=== PATIENT | male | born 1985 | race Caucasian/White ===

== ENCOUNTER 2020-06-18 05:17 | Inpatient (IN) | payer OTHER ==
[~2020-06-18] VITALS: Ht 162.6 cm; Wt 62.5 kg
[~2020-06-18 05:17] MED LIST: ACET-66 PO; CeFAZolin 2 GM/DEXTROSE 50 ML IV ONE; LIDOCAINE/PF 1% 5 ML VIAL INJ ONE; RINGERS SOLUTION,LACTATED 1,000 ML IV ONE
[2020-06-18] MEDS ORDERED: MICROFIBRILLAR COLLAGEN 1 GM PACKAGE TP ONE (05:51)
[2020-06-18] MEDS ORDERED: GELATIN SPONGE,ABSORBABLE 50 MM TP ONE (05:51)
[2020-06-18] MEDS ORDERED: VANCOMYCIN HCL 1 GM/VIAL ONE (05:51)
[2020-06-18] MEDS ORDERED: THROMBIN, BOVINE 20000 UNITS/VIAL POWDER TP ONE (05:52)
[2020-06-18] MEDS ORDERED: MUPIROCIN CALCIUM 2% 22 GM OINTMENT ONE (06:15)
[2020-06-18] MEDS ORDERED: BUPIVACAINE HCL/PF 0.5% 30 ML VIAL ONE (06:30)
[2020-06-18] MEDS ORDERED: BUPIVACAINE LIPOSOME/PF 1.3%-13.3MG/ML SUSPENSION 20 ML VIAL INJ ONE (06:30)
[2020-06-18] MEDS ORDERED: SODIUM CHLORIDE 0.9% 1,000 ML ONE (06:31)
[2020-06-18] MEDS ORDERED: CeFAZolin 2 GM/DEXTROSE 50 ML IV ONE (07:00)
[2020-06-18] MEDS ORDERED: RINGERS SOLUTION,LACTATED 1,000 ML IV SCH (07:00)
[2020-06-18] MEDS ORDERED: MEPERIDINE-PF 25 MG/ML VIAL IVP PRN (08:30)
[2020-06-18] MEDS ORDERED: ONDANSETRON HCL 4 MG/2 ML VIAL IVP PRN (08:30)
[2020-06-18] MEDS ORDERED: HYDROmorphone 2 MG/ML SYRINGE IVP PRN ×2 (08:30)
[2020-06-18] MEDS ORDERED: SUGAMMADEX SODIUM 200 MG/2 ML VIAL IVP ONE (08:48)
[2020-06-18 10:17] VITALS: BP 119/71
[2020-06-18] MEDS: ACETAMINOPHEN 1000 MG/ISO-OSM 100 ML IV SCH ×2 (11:35→16:55)
[2020-06-18] MEDS: HYDROmorphone 2 MG/ML SYRINGE IVP PRN ×2 (13:27→20:28)
[2020-06-18] MEDS: CeFAZolin 2 GM/DEXTROSE 50 ML IV SCH ×2 (15:16→22:32)
[2020-06-18 15:32] VITALS: BP 117/73
[2020-06-18 20:15] VITALS: BP 96/61
[2020-06-18] MEDS ORDERED: SODIUM CHLORIDE 0.9% 500 ML IV ONE (22:45)
[2020-06-18 23:38] VITALS: BP 97/58
[2020-06-19] MEDS: ACETAMINOPHEN 1000 MG/ISO-OSM 100 ML IV SCH (00:56)
[2020-06-19] MEDS: HYDROmorphone 2 MG/ML SYRINGE IVP PRN ×2 (02:18→09:58)
[2020-06-19 03:50] VITALS: BP 97/57
[2020-06-19] MEDS ORDERED: PROPOFOL 1% 20 ML VIAL IVP ONE (05:58)
[2020-06-19] MEDS ORDERED: ROCURONIUM BROMIDE 10 MG/ML 5 ML VIAL IVP ONE (05:58)
[2020-06-19] MEDS ORDERED: LIDOCAINE/PF 2% 5 ML VIAL IM ONE (05:58)
[2020-06-19 07:56] VITALS: BP 99/58
[2020-06-19] MEDS ORDERED: ENOXAPARIN SODIUM 40 MG/0.4 ML PF SYRINGE SQ SCH (10:00)
[2020-06-19] MEDS ORDERED: HYDROmorphone 2 MG/ML SYRINGE IVP ONE (12:14)
[2020-06-19] MEDS ORDERED: FentaNYL CITRATE-PF 100 MCG/2 ML VIAL IVP ONE (12:14)
[2020-06-19] MEDS ORDERED: MIDAZOLAM HCL 2 MG/2 ML VIAL IVP ONE (12:14)
== END 2020-06-19 12:15 | disposition home or self-care (01) | DRG 505 ==
LOC: SURGERY 05:17 → 6N 07:20
PROVIDERS: ADMIT Orthopaedic Surgery; ATTEND Orthopaedic Surgery
PROC: 0SGH04Z Fusion of Right Tarsal Joint with Internal Fixation Device, Open Approach (ICD-10-PCS; 2020-06-18)
PROC: 0SSFXZZ Reposition Right Ankle Joint, External Approach (ICD-10-PCS; 2020-06-18)
PROC: 3E0T3BZ Introduction of Anesthetic Agent into Peripheral Nerves and Plexi, Percutaneous Approach (ICD-10-PCS; 2020-06-18)
PROC: 0SPFX4Z Removal of Internal Fixation Device from Right Ankle Joint, External Approach (ICD-10-PCS; 2020-06-18)
PROC: 0SU Lower Joints, Supplement (ICD-10-PCS; 2020-06-18)
PROC: BQ0 Imaging, Non-Axial Lower Bones, Plain Radiography (ICD-10-PCS; 2020-06-18)
PROC: BW1C1ZZ Fluoroscopy of Lower Extremity using Low Osmolar Contrast (ICD-10-PCS; 2020-06-18)
PROC: 0SBH0ZZ Excision of Right Tarsal Joint, Open Approach (ICD-10-PCS; principal; 2020-06-18 07:00)
DX: M96.0 Pseudarthrosis after fusion or arthrodesis (principal); Z20.828 Contact with and (suspected) exposure to other viral communicable diseases; L91.0 Hypertrophic scar; Y83.8 Other surgical procedures as the cause of abnormal reaction of the patient, or of later complication, without mention of misadventure at the time of the procedure; Y92.89 Other specified places as the place of occurrence of the external cause
CPT/HCPCS: 97116; 97162; 97165; 97530; 97535; C9290; J0131; J0690; J1170; J1650; J2250; J2704; J3010; J3370; J3490; J7030; J7040; J7120